=== PATIENT | female | born 1980 | race Caucasian/White ===

== ENCOUNTER 2016-10-01 05:21 | Inpatient (IN) | payer BC ==
[~2016-10-01] VITALS: Ht 162.6 cm; Wt 125.0 kg
[2016-10-01] VITALS (7 sets, daily range): BP systolic 113–134; BP diastolic 69–81
[~2016-10-01 05:21] MED LIST: ASPI1TAB PO; GLYB5TA PO
[2016-10-01] MEDS ORDERED: BICITRA 30ML SOLN UDC PO ONE (05:45)
[2016-10-01 06:10] LABS: MEAN CORPUSCULAR HEMOGLOBIN 27.9 pg (27.0-33.0); MEAN CORPUSCULAR HGB CONC 33.2 g/dl (32.0-36.5); MEAN CORPUSCULAR VOLUME 83.8 fl (80.0-96.0); RED CELL DISTRIBUTION WIDTH 14.3 % (11.5-14.5); WHITE BLOOD COUNT 15.2 K/mm3 (4.0-10.0)
[2016-10-01] MEDS ORDERED: ONDANSETRON 4MG/2ML VIAL (J2405) As Ordered ONE (08:32)
[2016-10-01] MEDS ORDERED: KETOROLAC 60 MG/2 ML VIAL (J1885) As Ordered ONE ×2 (08:32→08:45)
[2016-10-01] MEDS ORDERED: OXYTOCIN INJ 10 UNITS/ML VIAL (J2590) As Ordered ONE (08:32)
[2016-10-01] MEDS ORDERED: PHENYLephrine HCL 500 MCG/5 ML (100MCG/ML) SYRINGE (J2370) As Ordered ONE (08:45)
[2016-10-01 08:51] LABS: CORD GAS ABE A -1.2; CORD GAS HCO3 A 27.3 MEQ/L; CORD GAS O2 SAT A 39.3 %; CORD GAS PCO2 A 61.8 mmHg; CORD GAS PH A 7.263 UNITS; CORD GAS PO2 A 21.1 mmHg; CORD GAS SBC A 22.1 MEQ/L; CORD GAS TCO2 A 29.2 MEQ/L
[2016-10-01 08:52] LABS: CORD GAS ABE V -1.3; CORD GAS HCO3 V 24.7 MEQ/L; CORD GAS O2 SAT V 75.9 %; CORD GAS PCO2 V 45.9 mmHg; CORD GAS PH V 7.348 UNITS; CORD GAS PO2 V 33.9 mmHg; CORD GAS SBC V 22.8 MEQ/L; CORD GAS TCO2 V 26.1 MEQ/L
[2016-10-01] MEDS: PRENATAL VITAMIN TAB PO SCH (09:00)
[2016-10-01] MEDS: DOCUSATE SODIUM 100 MG CAP PO SCH ×2 (09:00→21:14)
[2016-10-01] MEDS ORDERED: MOM 30ML SUSPENSION UDC PO PRN (09:15)
[2016-10-01] MEDS ORDERED: RHOGAM 300 MCG (1500 IU) INJ (J2790) IM SCH (09:15)
[2016-10-01] MEDS ORDERED: PROMETHAZINE 25 MG TAB PO PRN (09:15)
[2016-10-01] MEDS ORDERED: MEASLES,MUMPS,RUBELLA VACCINE INJ (MMR-II) (90707) SC SCH (09:15)
[2016-10-01] MEDS ORDERED: fentaNYL 100 MCG/2 ML INJECTION (J3010) As Ordered ONE (09:36)
[2016-10-01] MEDS ORDERED: MORPHINE 2 MG/ML 1ML SYRINGE IV PRN (09:45)
[2016-10-01] MEDS ORDERED: fentaNYL 100 MCG/2 ML INJECTION (J3010) IV PRN (09:45)
[2016-10-01] MEDS ORDERED: ONDANSETRON 4MG/2ML VIAL (J2405) IV PRN (09:45)
[2016-10-01] MEDS: LR 1,000 ML IV SCH ×2 (11:30→17:06)
[2016-10-01] MEDS: NORCO, ANEXSIA 5/325MG TABLET (HYDROcodone/ACETAMINOPHEN) PO PRN ×2 (12:59→20:02)
[2016-10-01] MEDS: KETOROLAC 30 MG/ML VIAL (J1885) IV SCH ×2 (15:06→21:15)
[2016-10-02] MEDS: LR 1,000 ML IV SCH ×4 (01:06→20:42)
[2016-10-02 02:08] VITALS: BP 137/77
[2016-10-02] MEDS: KETOROLAC 30 MG/ML VIAL (J1885) IV SCH ×2 (03:30→09:14)
[2016-10-02 06:57] LABS: MEAN CORPUSCULAR HEMOGLOBIN 27.4 pg (27.0-33.0); MEAN CORPUSCULAR HGB CONC 31.7 g/dl (32.0-36.5); MEAN CORPUSCULAR VOLUME 86.4 fl (80.0-96.0); RED CELL DISTRIBUTION WIDTH 15.1 % (11.5-14.5); WHITE BLOOD COUNT 16.2 K/mm3 (4.0-10.0)
[2016-10-02] MEDS: PRENATAL VITAMIN TAB PO SCH (09:14)
[2016-10-02] MEDS: DOCUSATE SODIUM 100 MG CAP PO SCH ×2 (09:14→21:12)
[2016-10-02 10:00] VITALS: BP 121/58
--- NOTE | 2016-10-02 10:27 | IPNPDOC ---
Date/Time Seen The patient was seen on 10/02/16 at 10:19. Progress Note SUBJECTIVE: Patient has no complaints. Reports she is voiding without difficulty and has been passing gas. She has been out of bed walking the hallways without difficulty. She reports she is managing her pain with Toradol and Tylenol. OBJECTIVE: PHYSICAL EXAMINATION: VITAL SIGNS: Please see below. ABDOMINAL: Low transverse abdominal incision dressing has been removed. The edges of the incision are approximated no drainage or discharge. Steri-Strips in place. PERINEUM: Lochia is scant bright red. EXTREMITIES: Bilateral lower legs and feet with 2+ pitting edema. LABORATORY DATA: Please see below. ASSESSMENT: Day 1 postoperative from a repeat elective section PLAN: Continue supportive nursing care and pain management. Anticipate discharge to home tomorrow. VS, I&O, 24H, Fishbone VS, I&O, 24H, Fishbone Vital Signs Date Time Temp Pulse Resp B/P Pulse Ox O2 Delivery O2 Flow Rate FiO2 10/02/16 10:00 96.5 95 20 121/58 98 10/02/16 02:08 Room Air I&O- Last 24 Hours up to 6 AM 10/02/16 06:00 Intake Total 1320 ml Output Total 2100 ml Balance -780 ml Laboratory Tests 2 10/01/16 12:52: Bedside Glucose (Misc Panel) 87 10/01/16 21:20: Bedside Glucose (Misc Panel) 99 Laboratory Tests 10/02/16 06:41 Red Blood Count 3.92 L, Mean Corpuscular Volume 86.4, Mean Corpuscular Hemoglobin 27.4, Mean Corpuscular Hemoglobin Concent 31.7 L, Red Cell Distribution Width 15.1 H ARIEL REYES CNM Oct 02, 2016 10:27
[2016-10-02 14:21] VITALS: BP 120/78
[2016-10-02] MEDS: NORCO, ANEXSIA 5/325MG TABLET (HYDROcodone/ACETAMINOPHEN) PO PRN ×2 (15:22→21:19)
[2016-10-02] MEDS: IBUPROFEN 800 MG TAB PO SCH (17:27)
[2016-10-02 17:58] VITALS: BP 124/81
[2016-10-02 21:22] VITALS: BP 132/85
[2016-10-03] MEDS: IBUPROFEN 800 MG TAB PO SCH ×2 (02:42→08:08)
[2016-10-03] MEDS: DOCUSATE SODIUM 100 MG CAP PO SCH (08:07)
[2016-10-03] MEDS: PRENATAL VITAMIN TAB PO SCH (08:08)
[2016-10-03] MEDS: LR 1,000 ML IV SCH (08:09)
[2016-10-03] MEDS ORDERED: OXYC1TAB23 PO (08:50)
--- NOTE | 2016-10-03 09:33 | REP ---
DATE OF ADMISSION: 10/01/2016 Carmen is a 36-year-old female 3, para 1-0-1-1, with a history of gestational diabetes on glyburide well-controlled who presented at 39 weeks gestation for elective repeat section. Upon admission no bleeding. No leakage of fluid. Good movement. Her records reviewed, essentially unremarkable. PAST MEDICAL HISTORY: Significant for psoriasis. PAST SURGICAL HISTORY: Cholecystectomy, section. SOCIAL HISTORY: She denies any alcohol, drugs or cigarette smoking. REVIEW OF SYSTEMS: Unremarkable. MEDICATIONS: vitamin, glyburide. ALLERGIES: NO KNOWN DRUG ALLERGIES. PHYSICAL EXAMINATION: Obese female in no acute distress. Abdomen: Soft, nontender, nondistended. Extremities: no clubbing, cyanosis or edema. Vaginal exam deferred. Tracing revealed category 1 tracing. ASSESSMENT: Intrauterine at 39 weeks gestation for elective repeat section. PLAN: Admit to labor and delivery. Routine labs sent. Awaiting OR for repeat section.
[2016-10-03] MEDS ORDERED: MOTR200T44 PO (10:11)
[2016-10-03] MEDS ORDERED: P (10:15)
[2016-10-03] MEDS ORDERED: STUACAP PO (10:16)
[2016-10-03] MEDS ORDERED: LORT5TAB PO (10:17)
--- NOTE | 2016-10-03 13:15 | RO ---
DATE OF PROCEDURE: 10/01/2016 Carmen is a 36-year-old female, 3, para 1-0-1-1 who is admitted at 39 weeks gestation for elective repeat section. PREOPERATIVE DIAGNOSIS: Term for elective repeat section. POSTOPERATIVE DIAGNOSIS: Term for elective repeat section. PROCEDURE: Repeat section and revision of old scar. ANESTHESIA: Spinal. SURGEON: Dr. Townsend LAUNDRY OPERATOR: Vaishali Cason COMPLICATIONS: None. ESTIMATED BLOOD LOSS: 500 mL. FINDINGS: Live female in left occiput transverse position. scores 9 and 9. weight 10 pounds 2 ounces. Normal-appearing placenta and ovaries. PROCEDURE: After obtaining informed consent, the patient was taken to the operating room where spinal anesthetic was found to be adequate. She was then draped and prepped usual sterile fashion in the supine position. At this point, elliptical incision was made over the old scar. The old scar was removed. The incision was carried down to the fascia. Fascia was incised in midline fashion and carried through laterally. Superior aspect of the fascia were grasped with two Cristy clamps, tented off and dissected off the rectus muscles sharply. The inferior aspect was dissected off in a similar fashion. Rectus muscles in midline fashion. Peritoneum identified. Peritoneal cavity entered bluntly. Superior and inferior dissection of peritoneum was then done with good visualization of the bladder. At this point, a Mobius skin retractor was placed. A low-transverse uterine incision was made. The infant was delivered in atraumatic fashion. Nose and mouth bulb suctioned. Cord doubly clamped and cut and was handed over to the waiting warmer. Cord blood and cord gas were sent. Placenta removed manually. Uterus cleared of all clot and debris. The uterine incision was then repaired in two separate layers of #0 Vicryl suture. Pelvis copiously irrigated with normal saline and suctioned out. Attention turned to the peritoneum, which was closed in a running fashion using #2-0 Vicryl. Fascia closed in two separate segment of #0 Vicryl suture, and the skin was then reapproximated in subcuticular fashion using #3-0 Vicryl on a Jimmy. Steri-Strips placed. The patient tolerated procedure well. She was then transferred to recovery room in stable condition.
--- NOTE | 2016-10-03 13:17 | DSES ---
DATE OF ADMISSION: 10/01/2016 DATE OF DISCHARGE: 10/03/2016 FINAL DIAGNOSES: 1. Term for elective repeat section. 2. Gestational diabetes on glyburide, well controlled. PROCEDURES DONE DURING THIS ADMISSION: 1. Repeat section. 2. Revision of old scar. BRIEF HISTORY: Carmen is a 36-year-old female 3, para 1-0-1-1 who was admitted at 39 weeks gestation for elective repeat section. She underwent the above-noted procedure and was then transferred to maternity for postoperative care. Postoperatively, she did well. Her blood sugars were monitored for 24 hours and were found to be within normal limits. She was then restarted on her glyburide. On postoperative day #2, she was found to be in stable condition. Physical examination was within normal limits. At this point, a decision was made to discharge her home with a prescription for Percocet as needed for pain. She was further instructed to use Motrin and to call if there is any severe bleeding, pain or temperature greater than 101.
== END 2016-10-03 10:45 | disposition home or self-care (01) | DRG 540 ==
LOC: M LDI 05:21 → M OBS 10:25
PROVIDERS: ADMIT Obstetrics & Gynecology; ATTEND Obstetrics & Gynecology
PROC: 10D00Z1 Extraction of Products of Conception, Low, Open Approach (ICD-10-PCS; principal; 2016-10-01 07:30)
DX: O34.211 Maternal care for low transverse scar from previous cesarean delivery (principal); O24.415 Gestational diabetes mellitus in pregnancy, controlled by oral hypoglycemic drugs; Z3A.39 39 weeks gestation of pregnancy; O32.2XX0 Maternal care for transverse and oblique lie, not applicable or unspecified; Z37.0 Single live birth